=== PATIENT | female | born 1975 | race Caucasian/White ===

== ENCOUNTER 2016-07-03 07:05 | Day surgery (SDC) | payer OTHER ==
[2016-07-02 09:57] LABS: HEMATOCRIT 41.4 % (36.0-48.0); HEMOGLOBIN 14.6 g/dL (12.0-16.0)
[2016-07-02 10:12] LABS: BUN (BLOOD UREA NITROGEN) 12 MG/DL (6-23); CALCIUM, SERUM 9.2 MG/DL (8.5-10.4); CHLORIDE, SERUM 105 MMOL/L (96-112); CO2 (CARBON DIOXIDE) 28 MMOL/L (24-34); CREATININE 0.76 MG/DL (0.55-1.02); GFR AFRICAN AMERICAN 114 ML/MIN (>=60); GFR NON AFRICAN AMERICAN 98 ML/MIN (>=60); GLUCOSE, SERUM 74 MG/DL (60-99); POTASSIUM, SERUM 4.2 MMOL/L (3.5-5.3); SODIUM, SERUM 142 MMOL/L (135-148)
--- NOTE | ~2016-07-03 | OP ---
Record Of Operation [facility] [address] [place]. [address] NAME: EARLINE PAT : 77 STATUS : REG [facility] PAT#: [id number] AGE: 41 ADM/REG DATE : 07/03/16 MR#: [id number] REPORT SERV DATE: 07/03/16 DICTATED BY: ANALY RODRIGUEZ DATE: 07/03/16 REPORT STATUS : Draft TRANSCRIBED BY: MODL DATE: 07/03/16 DATE OF PROCEDURE: 07/03/2016 PREOPERATIVE DIAGNOSIS: Chronic tonsillitis. POSTOPERATIVE DIAGNOSIS: Chronic tonsillitis. PROCEDURE: Tonsillectomy. SURGEON: Analy Rodriguez M.D. ANESTHESIA: General. COMPLICATIONS: None. COUNTS: All counts were correct following the procedure. ESTIMATED BLOOD LOSS: 2 mL. PREOPERATIVE INFORMED CONSENT: We discussed the risks and benefits of the surgery including, but not limited to bleeding infection, possible postoperative taste distortion, and consent is on the chart. DESCRIPTION OF OPERATION: The patient was brought to the operating suite and placed on the operating table in the supine position. General endotracheal anesthesia was initiated without incident. The head and neck were cleaned, prepped and draped in the usual sterile fashion. Following this, a Macrina-Chiki retractor was carefully inserted into the oral cavity and used to retract the tongue anteriorly and inferiorly to visualize the oropharynx. Following this, the right superior pole of the tonsil was grasped using a tonsillar tenaculum and retracted medially. Using electrocautery, an incision was made down to the anterior tonsillar pillar. Using sharp and blunt dissection with electrocautery, the tonsil was dissected off the underlying pharyngeal musculature, down to the inferior pole where it was transected and sent for permanent pathology. There was minimal bleeding. In a similar fashion as the right, the left tonsil was removed and sent for permanent pathology. Again, there was minimal bleeding. Suction cautery was then performed using a David dissector and meticulous technique. Meticulous hemostasis was achieved in both tonsillar fossae. The oral cavity was irrigated with sterile saline and suctioned until clear. The patient was taken out of suspension. The Macrina-Chiki retractor was removed. The teeth were noted to be in pre-operative condition. The patient was awakened from anesthesia and taken to the recovery room in stable condition. Record Of Operation [facility] [address] [place]. [address] NAME: EARLINE PAT : 77 STATUS : REG [facility]#: [id number] AGE: 41 ADM/REG DATE : 07/03/16 MR#: [id number] REPORT SERV DATE: 07/03/16 DICTATED BY: ANALY RODRIGUEZ DATE: 07/03/16 REPORT STATUS : Draft TRANSCRIBED BY: MARY DATE: 07/03/16 MANDY/MARY Analy Rodriguez M.D. / [id number] CC: Nitin Chacon
[~2016-07-03 07:05] MED LIST: IMITREX50 PO; PRISTIQ50 MG PO; TOPXL25 PO
== END 2016-07-03 23:59 | disposition home or self-care (01) ==
LOC: MSC 07:05
PROVIDERS: Otolaryngology
PROC: 0CTPXZZ Resection of Tonsils, External Approach (ICD-10-PCS; principal; 2016-07-03 08:15)
DX: J35.01 Chronic tonsillitis (principal)
CPT/HCPCS: 80048; 84703; 85014; 85018; 88304; 93005; A9270-GY; J2250; J2405; J3010